=== PATIENT | male | born 1950 | race Two or more races ===

== ENCOUNTER 2021-12-28 07:58 | Outpatient (CLI) | payer OTHER | END 2021-12-28 08:04 | disposition home or self-care (01) | LOC: RX STUDY 07:58 | PROVIDERS: ATTEND Otolaryngology | DX: R13.13 Dysphagia, pharyngeal phase (principal) ==

== ENCOUNTER 2022-01-12 08:27 | Outpatient (CLI) | payer OTHER | END 2022-01-12 08:37 | disposition home or self-care (01) | LOC: SONOGRAMA 08:27 | PROVIDERS: ATTEND Pathology Anatomic Pathology | DX: E04.2 Nontoxic multinodular goiter (principal) ==